=== PATIENT | female | born 1950 | race Caucasian/White ===

== ENCOUNTER → 2024-12-12 | Outpatient (CLI) | payer MEDICARE, MEDICAID, SELFPAY ==
--- NOTE | 2024-12-12 13:00 | XR_ITS ---
Examination: Screening digital mammography, bilateral Computer aided detection 3-D breast Tomosynthesis, bilateral Date and time of exam: December 12, 2024 1258 hours INDICATIONS: Intermittent left breast pain beginning 3 months ago Indication: Screening Technique: Nonmagnified MLO, CC views of the breasts to been obtained, reconstructed from 3-D Tomosynthesis images. R2 computer aided detection program utilized for evaluation of suspicious masses and/or abnormal calcifications. 3-D Tomosynthesis images obtained. Findings: Scattered areas of fibroglandular density. 8 mm focal asymmetry outer left breast CC view, 7.7 cm from the nipple Impression: BI-RADS Category 0: Incomplete: Need additional imaging evaluation 8 mm focal asymmetry outer left breast CC view, 7.7 cm from the nipple, recommend follow-up spot tomographic views upper outer quadrant left breast left breast sonography to complete the workup
== END | disposition home or self-care (01) ==
PROVIDERS: PCP Internal Medicine; Referring Provider Internal Medicine; Visit Provider Internal Medicine
DX: Z12.31 Encounter for screening mammogram for malignant neoplasm of breast (principal); R92.8 Other abnormal and inconclusive findings on diagnostic imaging of breast; N64.89 Other specified disorders of breast
CPT/HCPCS: 77063; 77067

== ENCOUNTER → 2024-12-14 | Outpatient (CLI) | payer MEDICARE, MEDICAID, SELFPAY ==
[2024-12-14 08:31] LABS: Basophils # (Auto) 0.1 Thou/mm3 (0.0-0.2); Basophils % (Auto) 2 % (0-2.5); Eosinophils # (Auto) 0.6 Thou/mm3 (0.0-0.5); Eosinophils % (Auto) 7 % (0-10); Hematocrit 47.6 % (36.0-46.0); Hemoglobin 16.1 g/dL (12.0-16.0); Immature Granulocytes % (Auto) 1 % (0-0); Immature Granulocytes Auto 0.04 Thou/mm3 (0.00-0.00); Lymphocytes # (Auto) 2.4 Thou/mm3 (1.0-4.8); Lymphocytes % (Auto) 29 % (10-50); Mean Corpuscular HGB Conc 33.8 g/dl (31.0-37.0); Mean Corpuscular Hemoglobin 30.1 pg (25.0-35.0); Mean Corpuscular Volume 89 fL (80-100); Monocytes # (Auto) 0.8 Thou/mm3 (0.0-0.8); Monocytes % (Auto) 10 % (0-12); Neutrophils # (Auto) 4.2 Thou/mm3 (1.8-7.7); Neutrophils % (Auto) 52 % (37-80); Nucleated Red Blood Cell % 0 /100 WBC (0); Platelet Count 330 Thou/mm3 (140-440); RDW Standard Deviation 42.8 fL (36.4-46.3); Red Blood Count 5.35 Miln/mm3 (4.00-5.20); White Blood Count 8.1 Thou/mm3 (3.6-11.0)
[2024-12-14 08:38] LABS: Glucose Estimated Average 163 mg/dL (80-131); Hemoglobin A1C 7.3 % Hgb (4.8-6.0)
[2024-12-14 08:52] LABS: Creatinine MALB Rnd Ur 33 mg/dL (30-125); Microalbumin, Random Urine < 3 mg/L (0-300)
[2024-12-14 08:57] LABS: Vitamin D 25 Hydroxy Total 49.7 ng/mL (7.3-40.2)
[2024-12-14 09:01] LABS: Alanine Aminotransferase 20 U/L (10-49); Albumin, Serum 4.4 gm/dL (3.4-4.8); Albumin/Globulin Ratio 1.8 (1.2-2.2); Alkaline Phosphatase 99 U/L (46-116); Anion Gap 10 (7-16); Aspartate Amino Transferase 17 U/L (0-34); BUN/Creatinine Ratio 14 Ratio (12-20); Bilirubin,Total 0.5 mg/dL (0.3-1.2); Blood Urea Nitrogen 13 mg/dL (9-23); Carbon Dioxide 28.5 mMol/L (20.0-31.0); Cardiac Risk Estimate 2.8 RATIO (3.7-5.6); Chloride 101 mMol/L (98-107); Cholesterol 156 mg/dL (132-200); Creatinine (Component) 0.9 mg/dL (0.6-1.3); Free T4 (Free Thyroxine) 1.05 ng/dL (0.89-1.76); Globulin 2.5 gm/dL (2.3-3.5); Glucose 200 mg/dL (74-106); HDL Cholesterol 55 mg/dL (40-60); LDL Cholesterol,Calculated 59 mg/dL (0-130); Osmolality,Calculated 283 (275-295); Potassium 4.5 mMol/L (3.4-5.1); Sodium 139 mMol/L (136-145); Thyroid Stimulating Hormone 2.04 uIU/mL (0.55-4.78); Total Protein 6.9 gm/dL (5.7-8.2); Triglycerides 209 mg/dL (30-150); eGFR > 60 See Note
== END | disposition home or self-care (01) ==
LOC: COPL 07:18
PROVIDERS: PCP Internal Medicine; Referring Provider Internal Medicine; Visit Provider Internal Medicine
DX: Z00.00 Encounter for general adult medical examination without abnormal findings (principal); E55.9 Vitamin D deficiency, unspecified
CPT/HCPCS: 36415; 80053; 80061; 82043; 82306; 82570; 83036; 84439; 84443; 85025

== ENCOUNTER → 2024-12-16 | Outpatient (CLI) | payer MEDICARE, MEDICAID, SELFPAY ==
--- NOTE | 2024-12-16 | XR_ITS ---
Examination: Wrist, right 3 views Technique: Wrist AP, oblique, lateral 3 views Date and time of exam: December 16, 2024 1123 hours INDICATIONS: Patient fell today with injury to the wrist, wrist pain. FINDINGS: Severe osteopenia No acute fracture Advanced narrowing first carpometacarpal joint IMPRESSION: No acute fracture
--- NOTE | 2024-12-16 | XR_ITS ---
Examination: Right elbow 3 views Technique: Elbow AP, oblique, lateral 3 views Exam date and time: December 16, 2024 1137 hours INDICATIONS: Patient fell today with into the elbow, elbow pain. FINDINGS: Acute fracture radial neck Mild angulation at the fracture site No significant offset IMPRESSION: Acute fracture radial neck.
--- NOTE | 2024-12-16 | XR_ITS ---
Examination: Humerus 2 views right Technique: Humerus, AP lateral 2 views Date and time of exam: December 16, 2024 1123 hours INDICATIONS: Patient fell today with injury to the right arm, right arm pain. FINDINGS: No shoulder fracture or dislocation Shaft of the humerus intact IMPRESSION: No acute fracture of the humerus
--- NOTE | 2024-12-16 | XR_ITS ---
Examination: Forearm, right, 2 views. Technique: Forearm, AP, lateral 2 views Date and time of exam: December 16, 2024 1123 hours INDICATIONS: Patient fell today with injury to the right forearm, right forearm pain. FINDINGS: Acute fracture radial neck No significant offset Shaft of the radius and ulna intact IMPRESSION: Acute fracture radial neck
--- NOTE | 2024-12-16 | XR_ITS ---
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
== END | disposition home or self-care (01) ==
PROVIDERS: PCP Internal Medicine; Referring Provider Internal Medicine; Visit Provider Internal Medicine
DX: S69.91XA Unspecified injury of right wrist, hand and finger(s), initial encounter (principal); S52.131A Displaced fracture of neck of right radius, initial encounter for closed fracture; S59.901A Unspecified injury of right elbow, initial encounter; S49.91XA Unspecified injury of right shoulder and upper arm, initial encounter; W19.XXXA Unspecified fall, initial encounter
CPT/HCPCS: 73060; 73080; 73090; 73110; 73130

== ENCOUNTER → 2025-01-03 | Outpatient (CLI) | payer MEDICARE, MEDICAID, SELFPAY ==
--- NOTE | 2025-01-03 08:56 | XR_ITS ---
Examination: Right elbow 3 views Technique: Elbow AP, oblique, lateral 3 views Exam date and time: January 03, 2025 0906 hrs. Indications: Patient fell 2 weeks ago with injury to the elbow, elbow pain Findings: Stable alignment fracture radial neck compared with December 16, 2024 Early healing Impression: Stable alignment fracture radial neck compared with December 16, 2024.
== END | disposition home or self-care (01) ==
PROVIDERS: PCP Internal Medicine; Referring Provider Orthopaedic Surgery; Visit Provider Orthopaedic Surgery
DX: S52.91XA Unspecified fracture of right forearm, initial encounter for closed fracture (principal); W19.XXXA Unspecified fall, initial encounter
CPT/HCPCS: 73080

== ENCOUNTER → 2025-02-07 | Outpatient (CLI) | payer MEDICARE, SELFPAY ==
--- NOTE | 2025-02-07 | XR_ITS ---
Examination: Diagnostic digital mammography, unilateral, left Computer aided detection 3-D breast Tomosynthesis, unilateral Date and time of exam: February 07, 2025 at 1111 hours INDICATIONS: 8 mm focal asymmetry outer left breast CC view 7.7 cm from the nipple on left breast sonogram December 12, 2024 Technique: Nonmagnified MLO, CC views of the left breast have been obtained, reconstructed from 3-D Tomosynthesis images. R2 computer aided detection program utilized for evaluation of suspicious masses and/or abnormal calcifications. 3-D Tomosynthesis images obtained. Findings: Scattered areas of fibroglandular density Focal asymmetry outer left breast, probably benign, 6 mm Impression: BI-RADS category 3: Probably benign findings One additional 6 month left mammogram follow-up is needed
--- NOTE | 2025-02-07 10:40 | XR_ITS ---
Examination: Breast ultrasound, unilateral, left Date and time of exam: February 07, 2025 1046 hours INDICATIONS: Left breast sonogram May 13, 2024 4:00 nodule 8 x 9 mm Technique: Real-time sanders scale ultrasonographic imaging performed left breast including all 4 quadrants as well as nipple retroareolar and axillary region. Findings: 2:00 circumscribed nodule 7 x 7 mm which may represent an intramammary lymph node 4:00 nodule circumscribed 7 x 5 mm IMPRESSION: BI-RADS Category 3: Probably benign findings One additional 6 month left breast sonogram follow-up is needed to document stability of solid nodules described above
== END | disposition home or self-care (01) ==
LOC: CDIM 10:07
PROVIDERS: PCP Internal Medicine; Referring Provider Internal Medicine; Visit Provider Internal Medicine
DX: R92.332 Mammographic heterogeneous density, left breast (principal); N63.23 Unspecified lump in the left breast, lower outer quadrant; N63.21 Unspecified lump in the left breast, upper outer quadrant
CPT/HCPCS: 76641; 77061; 77065; G0279